=== PATIENT | female | born 1975 | race Caucasian/White ===

== ENCOUNTER → 2019-06-07 | Day surgery (SDC) | payer BC, OTHER ==
--- NOTE | 2019-06-08 17:41 | PATH ---
Surgical Pathology Report Patient Name: ALAN GAVIRIA [facility]. Rec. #: [id number] /Age/Gender: 1975 (Age: 44) / F Account: [id number] Location: [facility] Taken: 06/07/2019 Received: 06/07/2019 Reported: 06/08/2019 Physicians: Tarun Dockery M.D. 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 Electronically Signed Cynthia Miles M.D. Gross Description Received in formalin labeled "right breast 9:00" are 4 schulte-yellow, cylindrical portions of fibroadipose tissue ranging from 0.4-0.7 cm in length and averaging 0.2 cm diameter. The specimens are submitted in toto in one cassette. Time to formalin fixation: <1 minute Total formalin fixation time: 6 hours. MLGodfreyZ/06/07/2019 daniella/06/07/2019
== END | disposition home or self-care (01) ==
LOC: JRADUS-SUR 11:36
PROVIDERS: ATTEND Obstetrics & Gynecology
PROC: 0HBT3ZX Excision of Right Breast, Percutaneous Approach, Diagnostic (ICD-10-PCS; principal; 2019-06-07)
DX: N60.31 Fibrosclerosis of right breast (principal); N60.21 Fibroadenosis of right breast
CPT/HCPCS: 19083; 87899; 88305-TC; A4648